=== PATIENT | female | born 1960 | race Caucasian/White ===

== ENCOUNTER 2019-05-24 17:17 | Emergency (ER) | payer BC, SELFPAY ==
--- NOTE | ~2019-05-24 | US_ITS ---
EXAMINATION: US right upper quadrant DATE: 05/24/2019 18:13 INDICATION: Epigastric pain and chest pain TECHNIQUE: Multiple grayscale and Doppler ultrasound images of the abdomen were obtained. COMPARISON: CT, 03/18/2015 FINDINGS: The head and and body of the pancreas are normal. The pancreatic tail is obscured by bowel gas. The liver is normal with normal echogenicity and echotexture. No surface nodularity. Normal hepa topetal flow in the main portal vein. The gallbladder is normal with no abnormal wall thickening, per icholecystic fluid or stones. The normal common bile duct measures 3 mm. There was no sonographic Mur phy sign. IMPRESSION: 1. Normal sonographic study of the gallbladder. Reviewed, dictated and finalized at location A. RUCTIONAL WRITER
--- NOTE | ~2019-05-24 | XR_ITS ---
EXAMINATION: XR chest 2V DATE: 05/24/2019 17:49 INDICATION: Chest pain and tightness TECHNIQUE: PA and lateral views of the chest are obtained. COMPARISON: None available FINDINGS: The lungs are free of acute opacities. There is no pleural effusion or pneumothorax. The ca rdiomediastinal silhouette is normal. There is mild thoracic spondylosis. IMPRESSION: 1. No acute cardiopulmonary abnormality. Reviewed, dictated and finalized at location A. OUTFITTING SUPERVISOR
[2019-05-24 17:22] VITALS: BP 180/82; PULSE 70; RESP 33; TEMP 36.8; O2SAT 100
[2019-05-24 17:28] VITALS: PULSE 77
--- NOTE | 2019-05-24 17:33 | ECG_ITS ---
Measurements Intervals [place] Rate: 68 P: 46 [place]: 154 QRS: 73 QRSD: 81 T: 54 QT: 388 QTc: 415 Interpretive Statements SINUS RHYTHM BORDERLINE T WAVE ABNORMALITY- ANTERIOR LEADS BORDERLINE ECG Electronically Signed On 05-24-2019 20:34:47 MESSENGER FLOORPERSON by Everett Andujar D.O.
--- NOTE | 2019-05-24 18:04 | ED.GENADULT ---
HPI - General Adult General Chief complaint: Chest Pain <Abdifatah Sandhu MD - Last Filed: 05/25/19 19:58> Stated complaint: CP, SOB <Abdifatah Sandhu MD - Last Filed: 05/25/19 19:58> Time Seen by Provider: 05/24/19 17:24 <Abdifatah Sandhu MD - Last Filed: 05/25/19 19:58> History of Present Illness HPI narrative: Patient is a 58-year-old female who presents the ER with epigastric pain beginning at 430 this afternoon. Pain was very acute and radiated up into her chest and into her neck. It created pressure and she was frequently belching. Intense symptoms lasted for 7 minutes and then she had additional discomfort for about an hour after that. No nausea or vomiting. [place] mildly short of breath. Has had similar symptoms infrequently in the past that typically occur at night. No history of cardiac disease. She does have borderline diabetes and a fatty liver for which she takes Crestor. Patient was not eating when symptoms occurred. No exertional component. <Abdifatah Sandhu MD - Last Filed: 05/25/19 19:58> Related Data Home medications: Home Medications Medication Instructions Recorded Confirmed Crestor 5 mg 05/24/19 metformin mg 05/24/19 <Abdifatah Sandhu MD - Last Filed: 05/25/19 19:58> Allergies/adverse reactions: Allergies Allergy/AdvReac Type Severity Reaction Status Date / Time No Known Allergies Allergy Unverified 05/24/19 17:32 <Abdifatah Sandhu MD - Last Filed: 05/25/19 19:58> Review of Systems Review of Systems: All systems reviewed & are unremarkable except as noted in HPI and below <Abdifatah Sandhu MD - Last Filed: 05/25/19 19:58> Constitutional: Constitutional: Denies fatigue, Denies fever(s) and Denies weakness <Abdifatah Sandhu MD - Last Filed: 05/25/19 19:58> ENT: Denies nasal congestion and Denies sore throat <Abdifatah Sandhu MD - Last Filed: 05/25/19 19:58> Cardiovascular: Cardiovascular: Reports chest pain and Reports radiating jaw, neck or arm pain <Abdifatah Sandhu MD - Last Filed: 05/25/19 19:58> Respiratory: Respiratory: Reports dyspnea and Denies wheezing <Abdifatah Sandhu MD - Last Filed: 05/25/19 19:58> Gastrointestinal: Gastrointestinal: Reports abdominal pain, Reports bloating, Denies diarrhea and Denies vomiting <Abdifatah Sandhu MD - Last Filed: 05/25/19 19:58> Comments: Belching <Abdifatah Sandhu MD - Last Filed: 05/25/19 19:58> PMFSH Past Medical History Medical History: Medical History (Updated 05/24/19 @ 23:46 by Noa Rodriguez MD) Borderline diabetes Fatty liver Hyperlipidemia <Abdifatah Sandhu MD - Last Filed: 05/25/19 19:58> Surgical History Surgical History: Surgical History (Updated 05/24/19 @ 19:15 by Abdifatah Sandhu MD) H/O section <Abdifatah Sandhu MD - Last Filed: 05/25/19 19:58> Social History Social History: Social History (Updated 05/24/19 @ 19:15 by Abdifatah Sandhu MD) Smoking status: Never smoker Gender identity (if verbalized by the patient): Female <Abdifatah Sandhu MD - Last Filed: 05/25/19 19:58> Exam Narrative: Exam Narrative: GENERAL: Well-appearing, well-nourished, and in no acute distress. HEAD: Normocephalic, atraumatic. ENT: Mucous membranes moist. CHEST: Clear to auscultation. No respiratory distress. HEART: Regular rate and rhythm. Normal peripheral pulses. ABDOMEN: Soft, nontender, nondistended, normal active bowel sounds. EXTREMITIES: Normal range of motion. No edema. SKIN: Warm, dry, no rash. NEURO: Alert and oriented x3. PSYCH: Normal mood and affect. <Abdifatah Sandhu MD - Last Filed: 05/25/19 19:58> Course Reevaluation(s) Reevaluation #1: I took over care of patient at 2000 today. She has had no chest pain during my care. I have discussed her pain does appear to be likely GI but I strongly suggest she call her PCP tomorrow for evaluation with possible referral to GI and possible cardi
[2019-05-24 18:07] LABS: Basophils Percent Auto 0.5 % (0.2-1.2); Eosinophils Absolute Auto 0.2 K/mm3 (0-0.3); Eosinophils Percent Auto 2.4 % (0-4.4); Hemoglobin 13.3 g/dL (12.0-15.0); Immature Granulocyte Absolute 0.02 K/mm3 (0.00-0.031); Immature Granulocyte Percent A 0.2 % (0-0.5); Lymphocytes Absolute Auto 2.67 K/mm3 (0.9-3.2); Lymphocytes Percent Auto 32.1 % (18.3-44.2); Mean Corpuscular HGB Conc 33.3 g/dl (32-36); Mean Corpuscular Hemoglobin 31.6 pg (26-34); Mean Platelet Volume 10.4 fl (7.4-10.4); Monocytes Absolute Auto 0.9 K/mm3 (0.1-0.6); Monocytes Percent Auto 11.3 % (2.6-8.5); Neutrophils Absolute Auto 4.5 K/mm3 (1.3-6.7); Neutrophils Percent Auto 53.5 % (45.5-73.1); Platelet Count Result 286 k/mm3 (150-375); Red Blood Count 4.21 M/mm3 (4.2-5.4); Red Cell Distribution Width 12.6 % (11.5-14.5); White Blood Count 8.3 K/mm3 (4.5-10.0)
[2019-05-24] MEDS: ASPIRIN 81 MG CHEWABLE TABLET 324 MG PO (18:12)
[2019-05-24 18:23] LABS: Blood Urea Nitrogen 19 mg/dL (7-17); Calcium 9.7 mg/dL (8.4-10.2); Carbon Dioxide 25 mmol/L (22-30); Chloride 99 mmol/L (98-107); Estimated Glomerular Filt Rate > 60; Glucose 100 mg/dL (65-105); Potassium 4.4 mmol/L (3.4-5.0); Sodium 141 mmol/L (137-145)
[2019-05-24 18:34] LABS: Troponin I < 0.012 ng/mL (0.000-0.034)
[2019-05-24 19:04] VITALS: BP 138/64; PULSE 74; RESP 17; TEMP 36.3; O2SAT 98
[2019-05-24 19:11] LABS: Prothrombin Time 12.8 Seconds (11.1-14.7)
[2019-05-24 19:12] LABS: Partial Thromboplastin Time 20.4 SECONDS (22.3-36.8)
[2019-05-24 19:14] LABS: Alanine Aminotransferase 31 U/L (4-35); Albumin Level 4.6 g/dL (3.5-5.1); Alkaline Phosphatase 73 U/L (38-126); Aspartate Amino Transferase 30 U/L (14-36); Bilirubin,Total 0.2 mg/dL (0.2-1.3); Lipase 139 U/L (23-300)
[2019-05-24 19:15] VITALS: PULSE 63; RESP 14; O2SAT 99
--- NOTE | 2019-05-24 20:54 | PC.NURSE ---
CROW MOSLEY MADE THIS NURSE AWARE THAT SHE WAS UNABLE TO OBTAIN BLOOD SPECIMEN AND THAT PHLEBOTOMY HAS BEEN CALLED TO DRAW THIS PT'S 3H TROP-I.
--- NOTE | 2019-05-24 21:39 | PC.NURSE ---
UNDERWRITING ANALYST FROM LAB HERE TO DRAW 3 HOUR TROP-1 AT THIS TIME.
--- NOTE | 2019-05-24 22:30 | PC.NURSE ---
Spoke with Anna in lab, she will send a vacation sales advisor to draw this patients 3 hr.
[2019-05-24 23:16] VITALS: BP 136/70; PULSE 73; RESP 13; O2SAT 98
[2019-05-24 23:39] LABS: Troponin I < 0.012 ng/mL (0.000-0.034)
== END 2019-05-25 00:20 | disposition home or self-care (01) ==
PROVIDERS: Emergency Medicine; Emergency Provider General Practice
DX: R10.13 Epigastric pain (principal); R73.03 Prediabetes; E78.5 Hyperlipidemia, unspecified; K76.0 Fatty (change of) liver, not elsewhere classified; R94.31 Abnormal electrocardiogram [ECG] [EKG]
CPT/HCPCS: 36415; 71046; 76705; 80048; 80076; 83690; 84484; 85025; 85610; 85730; 93005; 99284; A9270